=== PATIENT | female | born 1975 | race Caucasian/White ===

== ENCOUNTER → 2023-08-16 10:55 | Outpatient (REF) | payer OTHER, SELFPAY | LOC: WDC 10:55 | PROVIDERS: ATTENDING PHYSICIAN Nurse Practitioner Family | DX: Z12.31 Encounter for screening mammogram for malignant neoplasm of breast (principal) | CPT/HCPCS: 77063; 77067 ==

== ENCOUNTER → 2023-10-16 06:28 | Day surgery (SDC) | payer OTHER, SELFPAY | LOC: GI 06:28 | PROVIDERS: ATTENDING PHYSICIAN Surgery | DX: Z12.11 Encounter for screening for malignant neoplasm of colon (principal); K64.8 Other hemorrhoids; K64.4 Residual hemorrhoidal skin tags; K56.2 Volvulus | CPT/HCPCS: G0121 ==

== ENCOUNTER 2024-06-03 06:00 | Day surgery (SDC) | payer OTHER, SELFPAY ==
[2024-06-03] VITALS (8 sets, daily range): BP systolic 96–142; BP diastolic 58–108; BMI 28.8
[2024-06-03] MEDS: NORMOSOL-R/PLASMALYTE-A 1000 IV (06:49)
== END 2024-06-03 10:18 | disposition home or self-care (01) ==
LOC: SDS 06:00
PROVIDERS: ATTENDING PHYSICIAN Otolaryngology
DX: J34.2 Deviated nasal septum (principal); J33.9 Nasal polyp, unspecified; J34.89 Other specified disorders of nose and nasal sinuses; G47.30 Sleep apnea, unspecified
CPT/HCPCS: 31237; 30520; 88304

== ENCOUNTER → 2024-08-16 14:42 | Outpatient (REF) | payer OTHER, SELFPAY | LOC: WDC 14:42 | PROVIDERS: ATTENDING PHYSICIAN Nurse Practitioner Family | DX: Z12.31 Encounter for screening mammogram for malignant neoplasm of breast (principal) | CPT/HCPCS: 77063; 77067 ==